=== PATIENT | female | born 1995 | race Two or more races ===

== ENCOUNTER 2024-08-06 16:59 | Emergency (ER) | payer OTHER ==
[~2024-08-06] VITALS: Ht 149.9 cm; Wt 45.4 kg
[2024-08-06] MEDS ORDERED: AZITHROMYCIN 500 MG TABLET PO STA (17:30)
[2024-08-06] MEDS ORDERED: CEFTRIAXONE SODIUM 1,000 MG VIAL IM STA (17:30)
[2024-08-06 18:29] LABS: BASO % 0.6 % (0.1-1.2); EOS # 0.03 (0.04-0.54); EOS % 0.3 % (0.7-7.0); LYMPH # 2.41 (1.18-3.74); LYMPH % 26.7 % (19.3-53.1); MEAN PLATELET VOLUME 8.50 fl (9.4-12.4); MONO # 0.64 (0.24-0.82); MONO % 7.1 % (4.7-12.5); NEUT # 5.88 (1.56-6.13); NEUT % 65.1 % (34.0-71.1); RED CELL DISTRIBUTION WIDTH 13.0 % (11.6-14.4)
[2024-08-06 18:53] LABS: URINE APPEARANCE Cloudy; URINE BILIRRUBIN Small (NEGATIVE); URINE BLOOD Negative; URINE COLOR Red; URINE GLUCOSE Negative (NEGATIVE); URINE LEUKOCYTE Moderate; URINE NITRATE Positive; URINE PROTEIN 30 (NEGATIVE); URINE UROBILINOGEN 1.0 E.U./dl
[2024-08-06 18:53] LABS: ALT/SGPT 24.0 U/L (12-78); AST/SGOT 12.0 U/L (15-37); BILIRUBIN TOTAL 1.03 mg/dL (0.3-1.2); BUN CREA RATIO 12.0 (7.0-25.0); CREATININE SERUM 0.77 mg/dL (0.55-1.02); GFR 89.92; GLOBULINA 3.4 G/DL (2.4-3.5); GLUCOSE FASTING 116.0 mg/dL (65-100); OSMOLALITY SERUM 281.0 MOSM/KG (275-295)
[2024-08-06 18:56] LABS: URINE EPITHELIAL CELLS 21.6 uL (0.0-38.8); URINE RBC 61.4 uL (0.0-20.8)
[2024-08-06 20:01] LABS: URINE KETONE 40 (NEGATIVE)
[2024-08-06 20:04] LABS: URINE BACTERIA 3.5 uL (0.0-1933); URINE CAST 0.14 uL (0.0-1.40); URINE WBC 1.3 uL (0.0-23.2)
== END 2024-08-06 20:57 | disposition home or self-care (01) ==
LOC: ER 17:27
PROVIDERS: General Practice
DX: N76.0 Acute vaginitis (principal); B96.89 Other specified bacterial agents as the cause of diseases classified elsewhere; N39.0 Urinary tract infection, site not specified